=== PATIENT | female | born 1990 | race American Indian/Alaskan Native ===

== ENCOUNTER 2018-01-23 18:35 | Emergency (ER) | payer SELFPAY ==
[2018-01-23 18:42] VITALS: BP 124/81
[2018-01-23 19:12] LABS: HCG Qualitative,Urine Positive (Negative)
[2018-01-23 19:24] LABS: Bacteria,Urine 1+ /HPF (Negative); Mucus,Urine FEW /HPF
[2018-01-23 19:25] LABS: Bilirubin,Urine NEG (Negative); Blood,Urine NEG (Negative); Color,Urine Yellow (Yellow); Protein,Urine <15 mg/dL mg/dL (Negative); Urobilinogen,Urine < 2.0 mg/dL (<2.0)
--- NOTE | 2018-01-23 20:44 | Emergency Department Report ---
ED Female HPI - General Chief complaint: Urogenital-Female Stated complaint: BACK PAIN Time Seen by Provider: 01/23/18 20:03 Source: patient Mode of arrival: Ambulatory Limitations: No Limitations - History of Present Illness Initial comments: 27-year-old -[place] female comes in complaining of lower back and lower abdominal pain with dysuria and vaginal discharge. Patient reports she had a fever last night of 101. She did not take any medication for this. She reports that she secondary active for one partner unprotected. She is 5 para 3. Patient reports history of migraines currently takes no medications on a daily basis has no known drug allergies. MD Complaint: vaginal discharge, dysuria, pelvic pain -: days(s) (2) Severity scale (0 -10): 3 Quality: cramping, aching Consistency: intermittent Improves with: none Worsens with: urination Are you Now?: No Associated Symptoms: vaginal discharge, abdominal pain, fever/chills (last night with MAXIMUM TEMPERATURE of 101), dysuria - Related Data Sexually active: Yes (1 partner) : 5 Para: 3 A: 1 (miscarriage) Previous Rx's Medication Instructions Recorded Last Taken Type Amoxicillin [Amoxicillin TAB] 875 mg PO BID #20 tablet 01/23/18 Unknown Rx Pnv No.95/Ferrous Fum/Folic AC 1 each PO QDAY #90 tablet 01/23/18 Unknown Rx [ Formula Tablet] Allergies Allergy/AdvReac Type Severity Reaction Status Date / Time No Known Allergies Allergy Unverified 01/23/18 18:42 ED Review of Systems ROS: Stated complaint: BACK PAIN Other details as noted in HPI Constitutional: fever Eyes: denies: eye pain, eye discharge, vision change ENT: denies: ear pain, throat pain Respiratory: denies: cough, shortness of breath, wheezing Cardiovascular: denies: chest pain, palpitations Endocrine: no symptoms reported Gastrointestinal: abdominal pain Genitourinary: dysuria Musculoskeletal: back pain Skin: denies: rash, lesions Neurological: denies: headache, weakness, paresthesias ED Past Medical Hx - Past Medical History Additional medical history: Hx of migraines. - Surgical History Past Surgical History?: No - Social History Smoking Status: Never Smoker Substance Use Type: None - Medications Home Medications: Home Medications Medication Instructions Recorded Confirmed Last Taken Type Amoxicillin [Amoxicillin TAB] 875 mg PO BID #20 tablet 01/23/18 Unknown Rx Pnv No.95/Ferrous Fum/Folic AC 1 each PO QDAY #90 tablet 01/23/18 Unknown Rx [ Formula Tablet] ED Physical Exam - General Limitations: No Limitations General appearance: alert, in no apparent distress - Head Head exam: Present: atraumatic, normocephalic - Eye Eye exam: Present: normal appearance - ENT ENT exam: Present: mucous membranes moist - Neck Neck exam: Present: normal inspection - Respiratory Respiratory exam: Present: normal lung sounds bilaterally. Absent: respiratory distress - Cardiovascular Cardiovascular Exam: Present: regular rate, normal rhythm. Absent: systolic murmur, diastolic murmur, rubs, gallop - GI/Abdominal GI/Abdominal exam: Present: soft, normal bowel sounds - External exam: Present: normal external exam Speculum exam: Present: vaginal discharge, cervical discharge Bi-manual exam: Present: cervical motion tendernes. Absent: adnexal tenderness , adnexal mass, uterine tenderness - Extremities Exam Extremities exam: Present: normal inspection - Back Exam Back exam: Present: CVA tenderness (R), CVA tenderness (L) - Neurological Exam Neurological exam: Present: alert, oriented X3 - Psychiatric Psychiatric exam: Present: normal affect, normal mood - Skin Skin exam: Present: warm, dry, intact, normal color. Absent: rash ED Course Vital Signs 01/23/18 18:40 Temperature 98.4 F Pulse Rate 75 Blood Pressure 124/81 O2 Sat by Pulse 100 Oximetry ED Medical Decision Making - Radiology Data Radiology results: report reviewed, image reviewed FINDINGS: There is gestational sac within the uterus mean sac diameter 1.53 centimeters There is a pole identified crown-rump length 0.38 centimeters corresponding to estimated gestational age 6 weeks 0 days and estimated date of delivery September 17, 2018 cardiac activity is present with heart rate of 96 beats per minute There is a hypoechoic focus adjacent to the sac measuring 1.77 x 0.62 x 2.24 centimeters and additional focus measuring 1.12 x 1.18 x 1.27 centimeters Findings consistent with a moderate subchorionic hemorrhage Right ovary is 2.8 x 2.17 x 2.24 centimeters Left ovary is 4.25 x 2.89 x 2.96 centimeters there is a 1.8 centimeters cyst within the left ovary likely corpus luteum IMPRESSION: Single live intrauterine gestation estimated at 6 weeks 0 days Moderate subchorionic hemorrhage Corpus luteum cyst in the left ovary Transcribed By: JEREMIAS Dictated By: ZHANNA JACK MD Electronically Authenticated By: ZHANNA JACK MD Signed Date/Time: 01/23/182148 DD/ 48 TD/TT: 01/23/182148 - Medical Decision Making Patient's been evaluated by this provider faster. I discussed the patient regarding her ultrasound that she has a single live intrauterine gestation about 6 weeks also discussed the patient is a moderate subchorionic hemorrhage and that she needs to rest and no sexual intercourse nor exercising or lifting heavy objects no running until follow-up by [facility]. Please complete antibiotics for urinary tract infection. Used to have a mild bacterial infection in the vaginal area you can follow-up with [facility] for treatment. You can take Tylenol for any pain. We'll list several OB providers for you to follow-up with. Patient verbalized understanding. Critical care attestation.: If time is entered above; I have spent that time in minutes in the direct care of this critically ill patient, excluding procedure time. ED Disposition Clinical Impression: Bacterial vaginosis Subchorionic hemorrhage in first trimester Qualifiers: Fetus number: single or unspecified fetus Qualified Code(s): O41.8X10 - Other specified disorders of amniotic fluid and membranes, first trimester, not applicable or unspecified; O46.8X1 - Other antepartum hemorrhage, first trimester UTI (urinary tract infection) during Qualifiers: Trimester: first trimester Qualified Code(s): O23.41 - Unspecified infection of urinary tract in , first trimester Disposition: DC-01 TO HOME OR SELFCARE Is pt being admited?: No Does the pt Need Aspirin: No Condition: Stable Instructions: Bacterial Vaginosis (ED) Additional Instructions: Please complete antibiotics as prescribed. It is very important for you to follow up with [facility]. Please rest did not have any intercourse until seen by OB. You will need to rest pelvic no heavy lifting or jumping exercising until follow-up by [facility]. Prescriptions: Amoxicillin [Amoxicillin TAB] 875 mg PO BID #20 tablet Pnv No.95/Ferrous Fum/Folic AC [ Formula Tablet] 1 each PO QDAY #90 tablet Referrals: [facility] [Primary Care Provider] - 3-5 Days [facility] [Provider Group] - 3-5 Days [facility] [Provider Group] - 3-5 Days [facility] [Provider Group] - 3-5 Days Forms: STI Treatment and Prevention, Accompanied Note, Work/School Release Form (ED)
--- NOTE | 2018-01-23 21:53 | Ultrasound Report ---
FINAL REPORT EXAM: US OB TRANSVAGINAL HISTORY: abd pain +preg lmp 12/12/17 TECHNIQUE: Ultrasound obstetrical transvaginal PRIORS: None. FINDINGS: There is gestational sac within the uterus mean sac diameter 1.53 centimeters There is a pole identified crown-rump length 0.38 centimeters corresponding to estimated gestational age 6 weeks 0 days and estimated date of delivery September 17, 2018 cardiac activity is present with heart rate of 96 beats per minute There is a hypoechoic focus adjacent to the sac measuring 1.77 x 0.62 x 2.24 centimeters and additional focus measuring 1.12 x 1.18 x 1.27 centimeters Findings consistent with a moderate subchorionic hemorrhage Right ovary is 2.8 x 2.17 x 2.24 centimeters Left ovary is 4.25 x 2.89 x 2.96 centimeters there is a 1.8 centimeters cyst within the left ovary likely corpus luteum IMPRESSION: Single live intrauterine gestation estimated at 6 weeks 0 days Moderate subchorionic hemorrhage Corpus luteum cyst in the left ovary
--- NOTE | 2018-01-23 21:54 | Ultrasound Report ---
FINAL REPORT EXAM: US OB < = 14 WEEKS FETUS HISTORY: abd pain +preg lmp 12/12/17 TECHNIQUE: PRIORS: None. FINDINGS: There is gestational sac within the uterus mean sac diameter 1.53 centimeters There is a pole identified crown-rump length 0.38 centimeters corresponding to estimated gestational age 6 weeks 0 days and estimated date of delivery September 17, 2018 cardiac activity is present with heart rate of 96 beats per minute There is a hypoechoic focus adjacent to the sac measuring 1.77 x 0.62 x 2.24 centimeters and additional focus measuring 1.12 x 1.18 x 1.27 centimeters Findings consistent with a moderate subchorionic hemorrhage Right ovary is 2.8 x 2.17 x 2.24 centimeters Left ovary is 4.25 x 2.89 x 2.96 centimeters there is a 1.8 centimeters cyst within the left ovary likely corpus luteum IMPRESSION: Single live intrauterine gestation estimated at 6 weeks 0 days Moderate subchorionic hemorrhage Corpus luteum cyst in the left ovary
== END 2018-01-23 22:10 | disposition home or self-care (01) ==
LOC: ED 18:35
DX: O41.8X10 Other specified disorders of amniotic fluid and membranes, first trimester, not applicable or unspecified (principal); O23.41 Unspecified infection of urinary tract in pregnancy, first trimester; Z3A.01 Less than 8 weeks gestation of pregnancy
CPT/HCPCS: 36415; 76801; 76817; 81001; 81025; 84702; 87086; 87210; 99284

== ENCOUNTER 2018-04-01 11:27 | Emergency (ER) | payer MEDICAID ==
[2018-04-01 11:41] VITALS: BP 119/68
--- NOTE | 2018-04-01 15:24 | Emergency Department Report ---
Blank Doc - Documentation Documentation: I attempted to find patient in waiting room in examination room. Patient was not present in either. As per nursing staff patient likely eloped. I informed Dr. Alvarado of this
== END 2018-04-01 15:00 ==
LOC: ED 11:27
DX: R51 Headache (principal); Z53.21 Procedure and treatment not carried out due to patient leaving prior to being seen by health care provider